=== PATIENT | male | born 1975 | race Caucasian/White ===

== ENCOUNTER 2021-01-26 17:37 | Emergency (ER) | payer SELFPAY ==
--- NOTE | ~2021-01-26 | XR_ITS ---
XR ankle LT min 3V DATE: 01/26/2021 18:02 INDICATION: Twisted left ankle. Lateral pain. TECHNIQUE: 4 views COMPARISON: None FINDINGS: Prominent plantar and mild posterior calcaneal enthesopathy. Mild lateral ankle soft tissue swelling. No fracture or dislocation of the ankle or disruption of the ankle mortise. No periosteal reaction or bone destruction. IMPRESSION: Mild lateral ankle soft tissue swelling; no fracture or dislocation Calcaneal enthesopathy Reviewed, dictated and finalized at location A.
[2021-01-26 17:52] VITALS: BP 190/109; PULSE 96; RESP 18; TEMP 37.2; O2SAT 100
--- NOTE | 2021-01-26 18:08 | ED.LOWEXIN ---
HPI - Extremity Injury (Lower) General Chief Complaint: Extremity Injury, Lower Stated Complaint: Left Ankle Pain Source: patient and RN notes reviewed Limitations: no limitations History of Present Illness HPI Narrative: The obese patient, previously on HTN meds, presents with left ankle pain. Patient states he slipped on gumball's today;he complains of mild pain laterally that is worse with motion, better at rest. No bleeding, deformity; triage blood pressure is elevated. Patient comments that he also has whitecoat syndrome, and blood pressure pills at home and repeatedly declines any intervention. Related Data Allergies Allergy/AdvReac Type Severity Reaction Status Date / Time No Known Allergies Allergy Verified 01/26/21 17:46 Review of Systems Review of Systems: Narrative: General/Constitutional: No weight loss,fever Eyes: N0: Redness,discharge Ears/Nose/Throat: No: Epistaxis,ear discharge Respiratory: Denies: Hemoptysis Gastrointestinal: No Vomiting, Bleeding-rectal Skin: No Lumps, eruption PMFSH Family History Family History (Updated 06/01/12 @ 12:09 by DOCTOR UNKNOWN) Other Diabetes mellitus Social History Social History Smoking status: Never smoker Alcohol intake: never Gender identity (if verbalized by the patient): Male Comments At time of signature, agree with nursing past medical, surgical, social and family history. There is no relevant family history pertinent to the presenting complaint Exam Narrative: Exam Narrative: General Appearance: Obese, no distress Mouth/Throat: Normal appearing, Normal lips: Supple Respiratory: Airway patent, No respiratory distress MS-ankle: Normal strength (mostly intact, limited flexion/extension by pain), Tenderness ( laterally, with mild decreased ROM), Scant swelling (laterally), Other (no anterior drawer, no collateral laxity, no Achilles tenderness, no fifth MT tenderness) Skin: Warm, Dry, Normal color Neurological: A&O x3, , Normal affect Course Course Emergency Course: Films visualized, interpreted by radiologist, agree, normal see report Vital Signs Vital signs: Vital Signs Temperature 98.9 F 01/26/21 17:52 Pulse Rate 96 01/26/21 17:52 Respiratory Rate 18 01/26/21 17:52 Blood Pressure 190/109 H 01/26/21 17:52 Pulse Oximetry 100 01/26/21 17:52 Temperature 98.9 F 01/26/21 17:52 Pulse Rate 96 01/26/21 17:52 Respiratory Rate 18 04/13/21 17:52 Blood Pressure 190/109 H 01/26/21 17:52 Pulse Oximetry 100 01/26/21 17:52 Discharge Plan Discharge Clinical Impression: History of hypertension, Hx of medication noncompliance Left ankle sprain Qualifiers: Encounter type: initial encounter Involved ligament of ankle: unspecified ligament Qualified Code(s): S93.402A - Sprain of unspecified ligament of left ankle, initial encounter Patient Disposition: Home, Self-Care Condition: Stable Instructions: Ankle Sprain (ED) Additional Instructions: Try provided ankle strengthening exercises, and get ankle support Ensure you take your home blood pressure medicines [Norvasc, losartan] Prescriptions: New acetaminophen-codeine 300-30 mg tablet 1 tablet PO HS PRN (Reason: pain) Qty: 7 RF: 0 tramadol 50 mg tablet 50 mg PO TID PRN (Reason: pain) Qty: 15 RF: 1 Follow-up/Referrals: UNKNOWN,DOCTOR [Primary Care Provider] -
== END 2021-01-26 18:15 | disposition home or self-care (01) ==
PROVIDERS: Emergency Provider Emergency Medicine
DX: S93.402A Sprain of unspecified ligament of left ankle, initial encounter (principal); W22.8XXA Striking against or struck by other objects, initial encounter
CPT/HCPCS: 73610; 99213; G0463